=== PATIENT | male | born 1995 | race Caucasian/White ===

== ENCOUNTER 2017-10-22 23:08 | Emergency (ER) | payer OTHER ==
[2017-10-22 23:14] VITALS: BP 136/77; TEMP 98; BMI 35.9
[2017-10-22 23:44] VITALS: PULSE 87
--- NOTE | 2017-10-23 00:04 | PDOC ---
History of Present Illness - General Chief Complaint: Palpitations Stated Complaint: PALIPTATIONS X 2 WEEKS Time Seen by Provider: 10/22/17 23:30 History Source: Patient Exam Limitations: No Limitations - History of Present Illness Initial Comments: 10/23/17 06:31 palpitations, big beat with pause, sinking feeling during pause Presenting Symptoms: Other (palpitations) Timing/Duration: reports: intermittent Severity/Quality: reports: mild. denies: pressure, tearing, tightness Location: reports: central Chest Pain Radiation: denies: no radiation Activities at Onset: reports: none Prior Chest Pain/Cardiac Workup: reports: Other (hx of afib with RVR, holiday heart, responded to observaton) Modifying Factors: worse with: breathing, coughing, defecating, eating Associated Symptoms: No: Abdominal pain, Back Pain, Cough, Chest Pain/pressure, Diaphoresis, Dizziness, Fever/chills, Headache Past History - Past Medical History Allergies/Adverse Reactions: Allergies Allergy/AdvReac Type Severity Reaction Status Date / Time No Known Allergies Allergy Verified 10/22/17 23:09 Home Medications: Ambulatory Orders Fluoxetine HCl [Prozac] 100 mg PO DAILY 10/22/17 COPD: No Other medical history: ANXIETY/DEPRESSION - Suicide/Smoking/Psychosocial Hx Smoking History: Never smoked Have you smoked in the past 12 months: No Information on smoking cessation initiated: No Hx Alcohol Use: Yes (OCCAS) Drug/Substance Use Hx: Yes (MARIJUANA) Substance Use Type: Marijuana Review of Systems - Review of Systems All Other Systems: Reviewed and Negative *Physical Exam - Vital Signs Last Vital Signs Temp Pulse Resp BP Pulse Ox 98 F 87 18 136/77 97 10/22/17 23:10 10/22/17 23:43 10/22/17 23:10 10/22/17 23:10 10/22/17 23:43 - Physical Exam General Appearance: Yes: Nourished, Appropriately Dressed HEENT: positive: Normal Voice Neck: negative: Thyromegaly Respiratory/Chest: positive: Lungs Clear Cardiovascular: positive: Regular Rhythm Gastrointestinal/Abdominal: positive: Normal Bowel Sounds Lymphatic: negative: Adenopathy Musculoskeletal: positive: Normal Inspection Extremity: positive: Normal Capillary Refill Integumentary: positive: Normal Color Neurologic: positive: Alert, Motor Strength 5/5 Medical Decision Making - Medical Decision Making 10/23/17 06:34 EKG--nsr, nl axis, nl intervals, no ischemic findings. s1q3t3 pattern here has no relevance AP Symptoms c/w PVCs PERC- (S1q3t3 pattern noted on EKG, but no suspicion or risk for PE) no emergent mgmt indicated *DC/Admit/Observation/Transfer Diagnosis at time of Disposition: Palpitations - Discharge Dispostion Disposition: HOME Condition at time of disposition: Stable - Referrals - Patient Instructions Printed Discharge Instructions: DI for Premature Ventricular Beats - Post Discharge Activity
--- NOTE | 2017-10-24 16:43 | EKG ---
Test Reason : Blood Pressure : / mmHG Vent. Rate : 087 BPM Atrial Rate : 087 BPM P-R Int : 148 ms QRS Dur : 092 ms QT Int : 332 ms P-R-T Axes : 048 016 034 degrees QTc Int : 399 ms NORMAL SINUS RHYTHM NORMAL ECG NO PREVIOUS ECGS AVAILABLE Confirmed by MD Briseyda, Umer ([id number]) on 10/24/2017 4:42:39 PM Referred By: MD BEAL Confirmed By:Umer Rain MD
== END 2017-10-22 23:44 | disposition home or self-care (01) ==
LOC: FER 23:08
DX: R00.2 Palpitations (principal)
CPT/HCPCS: 93005; 99281-25